=== PATIENT | male | born 1955 | race Caucasian/White ===

== ENCOUNTER 2024-09-25 17:53 | Inpatient (IN) | payer MEDICARE, OTHER ==
[~2024-09-25] VITALS: Ht 175.3 cm; Wt 87.8 kg
[2024-09-25] MEDS ORDERED: Heparin Sodium,Porcine/0.5 NS 500 ML IV SCH (18:10)
[2024-09-25 18:13] VITALS: BP 115/66
[2024-09-25] MEDS ORDERED: OxyCODONE 5 mg/Acetamin 325 mg TABLET PO PRN (18:40)
[2024-09-25] MEDS ORDERED: Ondansetron HCl 2 MG / ML 2ML Vial IV PRN (18:45)
[2024-09-25] MEDS ORDERED: Albuterol 2.5 MG/3 ML VIAL INH PRN (18:45)
[2024-09-25 18:53] LABS: Hematocrit 35.5 % (37.0-53.0); Mean Corpuscular HGB 31.7 pg (26.0-34.0); Mean Corpuscular HGB Conc 33.8 g/dL (31.5-36.5); Mean Corpuscular Volume 94 fL (80-100); Mean Platelet Volume 9.9 fL (9.1-12.4); Platelet Count 226 K/mm3 (150-400); RDW Coefficient Variation 14.9 % (11.7-14.2); RDW Standard Deviation 51.2 fL (35.1-46.3); Red Blood Cell Count 3.79 M/mm3 (4.30-5.90); White Blood Cell Count 9.97 K/mm3 (4.00-11.30)
[2024-09-25 19:16] LABS: Albumin, Blood 2.9 g/dL (3.4-5.0); Albumin/Globulin Ratio 0.8 (0.8-1.8); Bilirubin, Total 0.5 mg/dL (0.1-1.0); Bun/Creatinine Ratio 16.3 (12.0-20.0); Calcium, Blood 8.5 mg/dL (8.5-10.1); Creatinine, Blood 0.73 mg/dL (0.60-1.20); Globulin, Blood 3.7 g/dL (2.2-4.0); Potassium, Blood 3.4 mmol/L (3.5-5.5); Total Protein, Blood 6.6 g/dL (6.4-8.2)
--- NOTE | 2024-09-25 19:40 | NUR ---
PT ARRIVED AT 1745, [place] TRANSFER FROM [place]- REPORT WAS RECIEVED FROMANNIKA FLORES AT [facility] WHEN THE PT LEFT THEIR FACILITY. WHEN PT ARRIVED HE WAS NOT IN THE SYSTEM. NO RECORDS NO WAY TO PLACE ORDERS. CALLED [facility] AND RECIEVED A VERBAL ORDER FOR HEPARIN, PT TRANSPORTED ON HEPARIN DRIP. IN TRANSIT THE PT LOST ALL FEELING IN THE RLE, HE STATED THE FEELING WAS PINNS AND NEEDLES BEFORE, THEN WAS COMPLETELY FEELING IN TRANSIT. THIS RN REQUESTED THAT THE HEPARIN DRIP BE MAINTAINED UNTIL THE PT HAD AN ORDER FOR IT HERE. EMS SAT AT BEDSIDE WHILE PT FILE WAS CREATED AND PT WAS ADMITTED TO THE COMPUTER. [facility] ARRIVED EMS WERE LEAVING AND THIS RN WAS STARTING THE HOSPITAL ORDERED HEPARIN DRIP. PT WAS ON ELIQUIS BID AT HOME, NOT COUMADIN LIKE HIS TRANSFER MED REC SAYS. PT HAD THE ELIQUIS ON HOLD FOR 2 DAYS PRIOR TO HIS BYPASS WITH DR JOHNSON YESTERDAY HE RESUMED IT THIS AM, PER REPORT FROM HIS CAREGIVER. PT STATES HE HAS AN ALLERGY TO PENNICILLIN HIS FACE AND HANDS WERE COVERED IN A BRIGHT RED RASH WHEN HE TOOK IT ONCE. HYDROCODONE IS LISTED ON HIS ALLERGY LIST, HIS CAREGIVER STATES HE DOES NOT HAVE AN ALLERGY TO NORCO. PT RIGHT FOOT IS DARK PURPLE/BLUE AND ICE COLD TO THE TOUCH, NO PALPABLE PULSE. PT CAME WITH PHOTO IN THE CHART OF THE DUSKY FOOT IT WAS WHEN HE WAS ADMITTED IN [place]. IT IS GREATLY CHANGED FROM THAT PHOTO ON ARRIVAL TO MED FLOOR. ADMISSION NOT STARTED, NIGHT RN WILL COMPLETE THAT. HE IS AWARE THE PT NEEDS NEW PHOTOS IN THE CHART ON ADMISSION TO THE HOSPITAL. PT IN BED, CALL LIGHT IN REACH, HE CALLS APPROPRIATELY. PT ENCOURAGED TO USE THE URINAL AND NOT MOBILIZE THE LEG WITH THE ARTERIAL OCCLUSION. CALLED [facility] FOR A TELE ORDER THE PT HAS A Hx OF DVT AND NM PLUS THE ARTERIAL OCCLUSION CURRENTLY. NO ORDER FOR TELE AT THIS TIME. HEPARIN DRIP IS RUNNING AT 13 UNITS/KG/HR AT THE TIME OF SHIFT CHANGE, DOSE WEIGHT OF 89.5. PT IN BED NO S&S OF DISTRESS NOTED AT THE TIME OF BEDSIDE REPORT.
[2024-09-25 20:38] VITALS: BP 143/59
[2024-09-25] MEDS ORDERED: Docusate Sodium/Senna 1 Tab PO SCH (21:00)
[2024-09-25] MEDS ORDERED: Dose Adjust by Pharmacy XX STA (21:21)
[2024-09-25] MEDS ORDERED: Heparin Sodium 5000 Units/ML 1ML MDV IV ONE (21:25)
[2024-09-25] MEDS ORDERED: ALBU90OI INH (22:28)
[2024-09-25] MEDS ORDERED: ASPI81CH PO (22:28)
[2024-09-25] MEDS ORDERED: Vitamin D1000 UNI1 PO (22:29)
[2024-09-25] MEDS ORDERED: FURO40 PO (22:30)
[2024-09-25] MEDS ORDERED: FLUT1DIS5 INH (22:30)
[2024-09-25] MEDS ORDERED: METO50ER PO (22:31)
[2024-09-25] MEDS ORDERED: LISI5 PO (22:31)
[2024-09-25] MEDS ORDERED: NITR.4SL SL (22:32)
[2024-09-25] MEDS ORDERED: OMEP20ER PO (22:32)
[2024-09-25] MEDS ORDERED: MIRALAX17 GM PO (22:33)
[2024-09-25] MEDS ORDERED: K-Dur10 MEQ PO (22:34)
[2024-09-25] MEDS ORDERED: PREG100 PO (22:34)
[2024-09-25] MEDS ORDERED: Primidone50 MG PO (22:35)
[2024-09-25] MEDS ORDERED: TRAM50 PO (22:36)
[2024-09-25] MEDS ORDERED: ZOCOR20 MG PO (22:36)
[2024-09-25] MEDS ORDERED: Coumadin7.5 MG PO (22:38)
[2024-09-25] MEDS ORDERED: WARF10 PO (22:39)
[2024-09-25] MEDS ORDERED: NS 1,000 ML IV SCH (23:30)
[2024-09-25 23:55] VITALS: BP 127/50
[2024-09-26] VITALS (28 sets, daily range): BP systolic 96–163; BP diastolic 41–125
[2024-09-26] MEDS ORDERED: Insulin Human Lispro 100 Units/ML 3ML Syringe SC SCH
[2024-09-26] MEDS ORDERED: Acetaminophen 325 MG TABLET PO PRN (00:05)
[2024-09-26 04:27] LABS: BASOPHILS ABSOLUTE AUTO 0.03 K/mm3 (0.00-0.23); BASOPHILS PERCENT AUTO 0 % (0-2); EOSINOPHILS ABSOLUTE AUTO 0.16 K/mm3 (0.00-0.68); EOSINOPHILS PERCENT AUTO 2 % (0-6); Hematocrit 34.8 % (37.0-53.0); Hemoglobin 11.6 g/dL (13.5-17.5); IMMATURE GRAN ABSOLUTE AUTO 0.03 K/mm3 (0.00-0.10); IMMATURE GRAN PERCENT AUTO 0 % (0-1); LYMPHOCYTES ABSOLUTE AUTO 2.07 K/mm3 (0.84-5.20); LYMPHOCYTES PERCENT AUTO 21 % (21-46); MONOCYTES ABSOLUTE AUTO 1.06 K/mm3 (0.16-1.47); MONOCYTES PERCENT AUTO 11 % (4-13); Mean Corpuscular HGB 31.4 pg (26.0-34.0); Mean Corpuscular HGB Conc 33.3 g/dL (31.5-36.5); Mean Corpuscular Volume 94 fL (80-100); Mean Platelet Volume 10.1 fL (9.1-12.4); NEUTROPHILS ABSOLUTE AUTO 6.43 K/mm3 (1.96-9.15); NEUTROPHILS PERCENT AUTO 66 % (41-73); Platelet Count 220 K/mm3 (150-400); RDW Coefficient Variation 14.9 % (11.7-14.2); RDW Standard Deviation 51.4 fL (35.1-46.3); Red Blood Cell Count 3.69 M/mm3 (4.30-5.90); White Blood Cell Count 9.78 K/mm3 (4.00-11.30)
[2024-09-26 04:47] LABS: Albumin, Blood 2.8 g/dL (3.4-5.0); Albumin/Globulin Ratio 0.8 (0.8-1.8); Bilirubin, Total 0.4 mg/dL (0.1-1.0); Bun/Creatinine Ratio 19.6 (12.0-20.0); Calcium, Blood 8.2 mg/dL (8.5-10.1); Creatinine, Blood 0.61 mg/dL (0.60-1.20); Globulin, Blood 3.7 g/dL (2.2-4.0); Magnesium, Blood 2.2 mg/dL (1.6-2.4); Potassium, Blood 3.6 mmol/L (3.5-5.5); Total Protein, Blood 6.5 g/dL (6.4-8.2)
--- NOTE | 2024-09-26 04:56 | NUR ---
SHIFT SUMMARY NOC PT A/O X 4. PLESANT AND COOPERATIVE WITH CARE. BP SOFT. NPO SINCE MIDNIGHT FOR REVASCULARIZATION TODAY. Q6H CBG 130. R PEDAL PULSE ABSENT FROM DVT, R FOOT IS DUSKY BLUE AND COLD TO TOUCH AND PT REPORTS N/T. PAIN BEING MANAGED PER EMAR. FACE SHEET FAXED TO DR JOHNSON'S OFFICE LAST NIGHT. PT HAD R FEMORAL BYPASS GRAFT PERFORMED 09/24/24. HEPARIN INFUSING PER PHARMACY. NS INFUSING @ OM TELE SINUS RHYTHM IN 80'S. PT CURRENTLY RESTING WITH BED IN LOWEST POSITION, AND CALL LIGHT WITHIN REACH.
[2024-09-26] MEDS ORDERED: Clarify Drug Order XX ONE (05:10)
[2024-09-26] MEDS ORDERED: TraMADol HCl 50 MG Tab PO ONE (05:20)
[2024-09-26] MEDS ORDERED: Nitroglycerin 0.4 MG SUBL SL PRN (08:00)
[2024-09-26] MEDS ORDERED: Mometasone/Formoterol MDI 200/5 mcg 13 GM INH SCH (08:10)
[2024-09-26] MEDS ORDERED: Polyethylene Glycol 3350 17 gm PO SCH (09:00)
[2024-09-26] MEDS ORDERED: Omeprazole 20 MG CapCR PO SCH (09:00)
[2024-09-26] MEDS ORDERED: Metoprolol Succinate 50 MG TABCR PO SCH (09:00)
[2024-09-26] MEDS ORDERED: Pregabalin 50 MG Capsule PO SCH (09:00)
[2024-09-26] MEDS ORDERED: Primidone 50 MG Tab PO SCH (09:00)
[2024-09-26] MEDS ORDERED: Furosemide 40 MG Tab PO SCH (09:00)
[2024-09-26] MEDS ORDERED: Lisinopril 5 MG Tab PO SCH (09:00)
[2024-09-26] MEDS ORDERED: Aspirin 81 MG Chew PO SCH (09:00)
[2024-09-26] MEDS ORDERED: Dose Adjust by Pharmacy XX STA (11:07)
[2024-09-26] MEDS ORDERED: NS 1,000 ML IV ONE ×2 (12:22→12:23)
[2024-09-26] MEDS ORDERED: Heparin Sodium 1000 Units/ML 10ML MDV ONE (12:23)
[2024-09-26] MEDS ORDERED: NS 250 ML IV ONE (12:23)
[2024-09-26] MEDS ORDERED: FentaNYL Citrate 50 MCG/ML 2 ML Injection ONE (13:02)
[2024-09-26] MEDS ORDERED: Midazolam HCl 1MG / ML 2ML Vial ONE ×2 (13:02→13:29)
[2024-09-26] MEDS ORDERED: Melatonin 3 MG Tab PO PRN (13:55)
[2024-09-26] MEDS ORDERED: Ondansetron HCl 2 MG / ML 2ML Vial IV PRN (13:55)
[2024-09-26] MEDS ORDERED: Midazolam HCl 1MG / ML 2ML Vial IV PRN (13:55)
[2024-09-26] MEDS ORDERED: Alteplase 1 MG/ML 25 MG in NS 250 ML IV SCH (14:00)
[2024-09-26] MEDS ORDERED: Heparin Sodium,Porcine/0.5 NS 500 ML IV SCH (14:05)
--- NOTE | 2024-09-26 15:15 | NUR ---
PT ARRIVED FROM MOTION PICTURE PHOTOGRAPHER AT 1407 WITH SHEATH IN LEFT GROIN. HEPARIN AND tPA INITIATED PER SIDE PORT PER DR.MC BOLDEN'S ORDERS. PT SLIGHTLY CONFUSED, HAD RECEIVED FENTANYL AND VERSED IN MOTION PICTURE PHOTOGRAPHER, REORIENTS EASILY. PT UNABLE TO VOID LAYING DOWN, BLADDER SCAN DONE WITH >500 URINE. STRAIGHT CATH PER PROTOCOL. PT REMINDED SEVERAL TIMES THAT HE IS UNABLE TO BEND THAT LEFT LEG. FEET REMAIN PURPLE IN COLOR ON RIGHT SIDE WITH DOPPLAR + MID-CALF, NONE AT ANKLE OR FOOT. PT STATES HE CAN GO TO THE BATHROOM IF HE CAN JUST SIT ON THE SIDE OF THE BED, REMINDED THE SHEATH IS IN THE LEFT GROIN.
--- NOTE | 2024-09-26 18:00 | NUR ---
SHIFT ASSESSMENT - UPDATE PT ARRIVED ON THE UNIT AT 1407 FROM [employer]. SBP 120-160, HIGHEST WHEN IN PAIN. NSR IN THE 80-90S ON ARRIVAL SINUS TACH 101 AFTER 1800. PT REPORTS CONSTANT THROBBING PAIN IN RLE. RLE IS COOL, BLUE, AND MOTTLED WITH ABSENT PULSES. LLE HAS WEAK AND THREADY PULSES. BLADDER SCAN 517ML AT 1545 FOR RETENTION, STRAIGHT CATH 600ML, 27ML POST CATH. PT HAS BEEN RESTLESS AND PAINFUL MOVING AROUND IN THE BED. PAIN HAS BEEN MANAGED WITH PILLOWS, HOB NO MORE THAN 20 DEGREES, AND PERCOCET 5/325 Q2 AND TYLENOL 650MG Q4. PAIN LEVELS HAVE BEEN 10/10 DESPITE MEDICATIONS. CALL LIGHT IS IN REACH. BED ALARM SET FOR SAFETY.
--- NOTE | 2024-09-26 20:00 | NUR ---
ASSUMED CARE OF PT AT 1900. REPORT RECEIVED AT BEDSIDE. PT PLEASANT AND COOPERATIVE WITH CARE. NOTED SOME CONFUSION. NO LONGER ENDORSES HALLUCINATIONS. PT USES HUMOR TO COVER CONFUSION. STATES THAT HE IS HAVING NEED TO URINATE. REQUESTS TO BE ABLE TO SIT AT SIDE OF BED TO VOID. EXPLAINED TO PT THAT HE HAS A FEMORAL SHEATH WITH TPA AND HEPARIN INFUSING, AND THAT HE IS NOT ABLE TO SIT UP AT THIS TIME. ASSISTED PT WITH URINAL. HE STATES THAT HE IS NOT ABLE TO VOID WHILE PEOPLE ARE IN THE ROOM. DID ALLOW PT TO HOLD URINAL AND TRY TO VOID. CALL LIGHT WITHIN REACH. WILL REVIEW CHART AND PLAN OF CARE FOR THIS PT.
[2024-09-26] MEDS ORDERED: Cholecalciferol 1000 Unit Tablet (=25MCG) PO SCH (21:00)
[2024-09-26] MEDS ORDERED: Potassium Chloride 20 MEQ TabCR PO SCH (21:00)
[2024-09-26] MEDS ORDERED: Atorvastatin 10 MG Tab PO SCH (21:00)
--- NOTE | 2024-09-26 22:00 | NUR ---
CONTINUING WITH PT ATTEMPTING TO USE URINAL HIS BED ALARM GETS ACTIVATED. WHEN ENTERING ROOM, PT WAS SITTING AT END OF BED TRYING TO GET OUT OF BED TO VOID. PT DOES THIS WITHOUT REGARD TO FEMORAL SHEATH WITH TPA AND HEPARIN. PT RELUCTANT TO ALLOW ASSIST BACK IN BED. WHEN HE WAS SUPINE AGAIN, DID NOTE HEMATOMA WAS FORMING UNDER SHEATH AREA. DIRECT PRESSURE HELD TO THE SITE. HELD PRESSURE FOR APPROX 15 MINUTES. THIS WAS AFFECTIVE TO REDUCE HEMATOMA. PT WAS VERY ANGRY ABOUT NOT BEING ABLE TO SIT UPRIGHT. EXPLAINED TO PT SEVERAL TIMES RATIONALE AND HIGH RISK OF BLEEDING. PT STATED HE DID NOT CARE AND WAS OK WITH DYING TO BE OUT OF BED FOR VOID. CALL HAD BEEN MADE TO DR Paz DONE BY HEALTHCARE PROF. OPTED TO PLACE 16 POLISH TEMP PROBE ISAAC TO ALLIVATE NEED TO VOID. HAD BLADDER SCANNED PT WITH [address] Paz ON TELEPHONE ABOUT HEMATOMA BEING REDUCED. ALSO THAT ISAAC WAS PLACED.
--- NOTE | 2024-09-26 23:56 | NUR ---
PT REQUIRING 1:1 SITTER TO KEEP HIM FROM PULLING AT SHEATH AND IV LINES. PT DOES REDIRECT EACH TIME. BUT INSIST HE WANTS TO GET OUT OF BED. DOES NEED REINFORCEMENT TEACHING ON REASONS FOR BEING SUPINE IN BED.
[2024-09-27] VITALS (35 sets, daily range): BP systolic 85–141; BP diastolic 30–121
[2024-09-27 02:44] LABS: BASOPHILS ABSOLUTE AUTO 0.02 K/mm3 (0.00-0.23); BASOPHILS PERCENT AUTO 0 % (0-2); EOSINOPHILS ABSOLUTE AUTO 0.02 K/mm3 (0.00-0.68); EOSINOPHILS PERCENT AUTO 0 % (0-6); Hematocrit 34.3 % (37.0-53.0); Hemoglobin 11.5 g/dL (13.5-17.5); IMMATURE GRAN ABSOLUTE AUTO 0.05 K/mm3 (0.00-0.10); IMMATURE GRAN PERCENT AUTO 0 % (0-1); LYMPHOCYTES ABSOLUTE AUTO 0.83 K/mm3 (0.84-5.20); LYMPHOCYTES PERCENT AUTO 7 % (21-46); MONOCYTES ABSOLUTE AUTO 1.11 K/mm3 (0.16-1.47); MONOCYTES PERCENT AUTO 10 % (4-13); Mean Corpuscular HGB 30.9 pg (26.0-34.0); Mean Corpuscular HGB Conc 33.5 g/dL (31.5-36.5); Mean Corpuscular Volume 92 fL (80-100); Mean Platelet Volume 9.8 fL (9.1-12.4); NEUTROPHILS ABSOLUTE AUTO 9.21 K/mm3 (1.96-9.15); NEUTROPHILS PERCENT AUTO 82 % (41-73); Platelet Count 191 K/mm3 (150-400); RDW Coefficient Variation 14.6 % (11.7-14.2); RDW Standard Deviation 49.9 fL (35.1-46.3); Red Blood Cell Count 3.72 M/mm3 (4.30-5.90); White Blood Cell Count 11.24 K/mm3 (4.00-11.30)
[2024-09-27 03:06] LABS: Bun/Creatinine Ratio 15.8 (12.0-20.0); Calcium, Blood 8.2 mg/dL (8.5-10.1); Creatinine, Blood 0.57 mg/dL (0.60-1.20); Potassium, Blood 3.3 mmol/L (3.5-5.5)
--- NOTE | 2024-09-27 04:22 | NUR ---
PT CONTINUES TO HAVE DOPPLER PULSE ON RIGHT POST TIBIAL. UNABLE TO OBTAIN PEDAL. DR Pza HAS BEEN AWARE. PT CONTINUES ON TPA AT 1MG AND HEPARIN AT 10 UNITS ORDERED. OF NOTE: COLORATION OF RIGHT LOWER EXTREMITY HAS IMPROVED SOME. PT STATES THAT LOWER EXTREMITY REMAINS TENDER. PT CONTINUES WITH 1:1 SITTER TO PROTECT FEMORAL SHEATH AND TPA AND HEPARIN LINES.
[2024-09-27] MEDS ORDERED: Potassium Chloride 20 MEQ TabCR PO ONE ×2 (07:40→08:50)
[2024-09-27] MEDS ORDERED: NS 1,000 ML IV ONE ×2 (13:09→14:38)
[2024-09-27] MEDS ORDERED: Heparin Sodium 1000 Units/ML 10ML MDV ONE (13:09)
[2024-09-27] MEDS ORDERED: NS 250 ML IV ONE (13:09)
[2024-09-27] MEDS ORDERED: FentaNYL Citrate 50 MCG/ML 2 ML Injection ONE (14:38)
[2024-09-27] MEDS ORDERED: Midazolam HCl 1MG / ML 2ML Vial ONE (14:38)
--- NOTE | 2024-09-27 14:50 | NUR ---
1415 PT TO VISUAL DISPLAY MANAGER WITH ANNIKA HILL. HEPARIN GTT AND ALTEPLASE INFUSING PER SHEATH.
[2024-09-27] MEDS ORDERED: Nitroglycerin 2 MG/20 ML BTL ONE (15:09)
--- NOTE | 2024-09-27 15:41 | NUR ---
DON RETURNS FROM CIVIL ENGINEERING PROFESSOR, SHEATH REMOVED, BRUISING NOTED AT THE GROIN SITE, NO BLEEDING. RIGHT FOOT WITH WARMTH TO ANKLE, FOOT STILL COOL. PT DENIES ANY COMPLAINTS AT THIS TIME. WILL INITIATE HEPARIN PER PHARMACY AND KEEP PT LAYING FLAT FOR ORDERED PERIOD. FURTHER CARE PER PLAN
[2024-09-27] MEDS ORDERED: Dose Adjust by Pharmacy XX STA ×2 (16:00→23:39)
[2024-09-27] MEDS ORDERED: Heparin Sodium,Porcine/0.5 NS 500 ML IV SCH (16:00)
--- NOTE | 2024-09-27 18:16 | NUR ---
DON HAS BEEN MORE APPROPRIATE AND ORIENTED T/O THE SHIFT. HE WAS MEDICATED X2 FOR RIGHT LOWER EXTREMITY PAIN, SHEATH SITE WAS GUARDED AND REMAINED INTACT UNTIL RETURN TO DYE MACHINE OPERATOR. PT RETURNED FROM DYE MACHINE OPERATOR, SHEATH REMOVED, SITE C/D/I. BRUISING NOTED, MORE COLOR AND SENSATION AND WARMTH TO RIGHT LOWER EXTREMITY. HEPARIN INITIATED BY PHARMACY ORDER AT 13U/HR. PT LYING FLAT, HAS FALLEN ASLEEP. WILL CONTINUE HEPARIN DRIP AND PLAN FOR POSSIBLE DISCHARGE TOMORROW.
--- NOTE | 2024-09-27 20:00 | NUR ---
ASSUMED CARE OF PT AT 1900. REPORT RECEIVED AT BEDSIDE. PT PRESENTS IN BED. LEFT GROIN SITE CHECKED WITH OFFGOING RN. ECCHYMOSIS NOTED. MINIMINAL HEMATOMA NOTED WHICH ANNIKA MOORE STATES HAS NOT CHANGED. PT HAS IMPROVEMENT IN COLOR AND TEMPERATURE TO RIGHT LOWER EXTREMITY. DOPPLER POST TIBIAL PULSE. UNABLE TO OBTAIN PEDAL ON RIGHT FOOT. WILL REVIEW CHART AND PLAN OF CARE FOR THIS PT.
--- NOTE | 2024-09-27 23:00 | NUR ---
HAVE REMOVED ISAAC CATHETER FROM PT. PT HAS BEEN ABLE TO VOID SINCE. ORTHOSTATIC BLOOD PRESSURES DONE WITHOUT SIGNIFICANT CHANGES. PT USES HIS PERSONAL WALKER TO STAND. WILL CONTINUE TO MONITOR.
[2024-09-28] VITALS (32 sets, daily range): BP systolic 78–132; BP diastolic 27–96
--- NOTE | 2024-09-28 03:55 | NUR ---
PT CONTINUES WITH HEPARIN DRIP PER PHARMACY. HAVE MADE CHANGE PER NEW PHARMACY ORDERS. PT NOW HAS OBTAINABLE DOPPLER PEDAL PULSE TO HIS RIGHT FOOT.
--- NOTE | 2024-09-28 05:55 | NUR ---
PT HAS BEEN ABLE TO REST SOME THIS NIGHT. VOIDS QUANTITY SUFFICIENT. NO CHANGES IN LEFT GROIN SITE. PT HAS BEEN UP OUT OF BED THIS NIGHT USING HIS HOME WALKER. ORTHOSTATIC BLOOD PRESSURES DONE. SEE CHART FOR DETAILS. NO VERTIGO WHILE STANDING. HAVE BEEN ABLE TO OBTAIN DOPPLER PEDAL PULSE ON RIGHT FOOT. WILL CONTINUE TO MONITOR PT, AND WILL REPORT OFF TO ONCOMING RN.
[2024-09-28 06:01] LABS: Hematocrit 32.8 % (37.0-53.0); Hemoglobin 11.2 g/dL (13.5-17.5); Mean Corpuscular HGB 31.2 pg (26.0-34.0); Mean Corpuscular HGB Conc 34.1 g/dL (31.5-36.5); Mean Corpuscular Volume 91 fL (80-100); Mean Platelet Volume 9.8 fL (9.1-12.4); Platelet Count 205 K/mm3 (150-400); RDW Coefficient Variation 14.7 % (11.7-14.2); RDW Standard Deviation 49.6 fL (35.1-46.3); Red Blood Cell Count 3.59 M/mm3 (4.30-5.90); White Blood Cell Count 13.37 K/mm3 (4.00-11.30)
[2024-09-28 06:31] LABS: Bun/Creatinine Ratio 13.1 (12.0-20.0); Calcium, Blood 8.4 mg/dL (8.5-10.1); Creatinine, Blood 0.61 mg/dL (0.60-1.20); Potassium, Blood 3.5 mmol/L (3.5-5.5)
[2024-09-28] MEDS ORDERED: Dose Adjust by Pharmacy XX STA (07:14)
[2024-09-28] MEDS ORDERED: Insulin Human Lispro 100 Units/ML 3ML Syringe SC SCH (07:30)
[2024-09-28] MEDS ORDERED: Apixaban 5 MG Tab PO SCH ×2 (09:00)
[2024-09-28] MEDS ORDERED: ELIQUIS5 M2 PO (09:22)
[2024-09-28] MEDS ORDERED: ATOR80 PO (09:26)
[2024-09-28] MEDS ORDERED: DOXY100 PO (09:26)
[2024-09-28] MEDS ORDERED: FINA5 PO (09:27)
[2024-09-28] MEDS ORDERED: GABA300 PO (09:27)
[2024-09-28] MEDS ORDERED: HYDR1TAB94 PO (09:28)
[2024-09-28] MEDS ORDERED: METF500 PO (09:29)
[2024-09-28] MEDS ORDERED: KETO15TC TOP (09:29)
[2024-09-28] MEDS ORDERED: LACT PO (09:29)
[2024-09-28] MEDS ORDERED: MUPIROCIN15 GM TOP (09:31)
[2024-09-28] MEDS ORDERED: POTA10T PO (09:34)
[2024-09-28] MEDS ORDERED: TAMS.4ER PO (09:37)
--- NOTE | 2024-09-28 11:36 | NUR ---
DISCHARGED PATIENT THIS AM, RIDE ARRANGED. MADE ROUNDS, PT HAS BEEN COMPLETELY APPROPRIATE TODAY. RIGHT FOOT WITH IMPROVED COLOR, TOUCH, SENSATION. ONE PAIN PILL GIVEN THIS AM WITH BREAKFAST. APPETITE GOOD, ABLE TO MAKE NEEDS KNOWN. DISCHARGE INSTRUCTIONS GIVEN, QUESTIONS ANSWERED, RX FOR PAIN MEDICATION SENT HOME WITH PATIENT IN HIS DC FOLDER. RIDE COMPANY HERE. PT ESCORTED WITH INTER COM SERVICER AND INTER COM SERVICER STUDENT TO RIDE VIA WHEELCHAIR.
== END 2024-09-28 11:50 | disposition home or self-care (01) | DRG 301 ==
LOC: MEDS 17:53 → ICUE 18:38 → MEDS 22:21 → PCU 09-26 13:29 → ICUE 09-26 13:38
PROVIDERS: Internal Medicine; Nurse Practitioner Acute Care; Radiology Diagnostic Radiology; ADMIT Internal Medicine
PROC: B41G1ZZ Fluoroscopy of Left Lower Extremity Arteries using Low Osmolar Contrast (ICD-10-PCS; principal; 2024-09-27)
PROC: 3E03317 Introduction of Other Thrombolytic into Peripheral Vein, Percutaneous Approach (ICD-10-PCS; 2024-09-27)
DX: I77.1 Stricture of artery (principal); J44.89 Other specified chronic obstructive pulmonary disease; I10 Essential (primary) hypertension; I25.10 Atherosclerotic heart disease of native coronary artery without angina pectoris; K21.9 Gastro-esophageal reflux disease without esophagitis; E11.51 Type 2 diabetes mellitus with diabetic peripheral angiopathy without gangrene; I70.221 Atherosclerosis of native arteries of extremities with rest pain, right leg; E78.5 Hyperlipidemia, unspecified; E87.6 Hypokalemia; G20.A1 Parkinson's disease without dyskinesia, without mention of fluctuations; Z87.891 Personal history of nicotine dependence; Z86.73 Personal history of transient ischemic attack (TIA), and cerebral infarction without residual deficits; Z88.0 Allergy status to penicillin; Z88.5 Allergy status to narcotic agent; Z79.51 Long term (current) use of inhaled steroids; Z79.82 Long term (current) use of aspirin; Z79.811 Long term (current) use of aromatase inhibitors; Z79.899 Other long term (current) drug therapy; Z79.01 Long term (current) use of anticoagulants
CPT/HCPCS: 36415; 37211; 51702; 75625; 75716; 75774; 76937; 80048; 80053; 82947; 83735; 85025; 85027; 85384; 85730; 94640; 94664; 94760; 94762; 99152; 99153; A9270; C1725; C1757; C1760; C1769; C1887; C1894; J1644; J2250; J2997; J3010; J7030; J7050; Q9967